=== PATIENT | male | born 1965 | race Caucasian/White ===

== ENCOUNTER 2018-01-16 21:45 | Emergency (ER) | payer MEDICARE, MEDICAID ==
[2018-01-16] MEDS ORDERED: Sodium Chloride 0.9% 1,000 ML IV ONE (22:14)
[2018-01-16] MEDS ORDERED: Sodium Chloride 0.9% 10 ML Syringe FLUSH PRN (22:14)
[2018-01-16] MEDS ORDERED: HYDROmorphone 2 MG/ML SDV IVPUSH ONE ×2 (22:15→22:47)
[2018-01-16] MEDS ORDERED: Ondansetron 4 MG/2 ML SDV IVPUSH ONE (22:15)
--- NOTE | 2018-01-16 22:21 | EDM.PDOC ---
ED HPI GENERAL MEDICAL PROBLEM - General Chief Complaint: Flank Pain Stated Complaint: CHEST PAIN/ LT SIDE PAIN Time Seen by Provider: 01/16/18 22:17 Source of Information: Reports: Patient History Limitations: Reports: No Limitations - History of Present Illness INITIAL COMMENTS - FREE TEXT/NARRATIVE: Developed left flank pain 1 hour ago associated with nausea and left sided chest pain. No prior h/o kidney stones. Prior h/o AMI w/ 2v CABG 2010 in [place]. Gastric bypass 2000 @ [facility]. Onset: Today, Sudden Onset Date: 01/16/18 Duration: Hour(s): (1) Location: Reports: Chest, Abdomen Quality: Reports: Dull Severity: Moderate Associated Symptoms: Reports: No Other Symptoms - Related Data Allergies Allergy/AdvReac Type Severity Reaction Status Date / Time No Known Allergies Allergy Verified 01/16/18 22:47 Past Medical History Cardiovascular History: Reports: CAD, High Cholesterol, Hypertension, NM Endocrine/Metabolic History: Reports: Diabetes, Type II - Past Surgical History Cardiovascular Surgical History: Reports: Coronary Artery Bypass (2010), Coronary Artery Stent GI Surgical History: Reports: Other (See Below) (Gastric bypass [address] Deonte Chauhan @ [facility]) Social & Family History - Tobacco Use Tobacco Use Within Last Twelve Months: No - Alcohol Use Alcohol Use History: Yes Alcohol Use Frequency: Rarely - Recreational Drug Use Recreational Drug Use: No ED ROS GENERAL - Review of Systems Review Of Systems: See Below Constitutional: Reports: No Symptoms HEENT: Reports: No Symptoms Respiratory: Reports: No Symptoms Cardiovascular: Reports: Chest Pain (left sided) Endocrine: Reports: No Symptoms GI/Abdominal: Reports: Nausea, Other (left flank pain). Denies: Vomiting Musculoskeletal: Reports: No Symptoms Skin: Reports: No Symptoms Neurological: Reports: No Symptoms Psychiatric: Reports: No Symptoms Hematologic/Lymphatic: Reports: No Symptoms Immunologic: Reports: No Symptoms ED EXAM, GI/ABD - Physical Exam Exam: See Below Exam Limited By: No Limitations General Appearance: Alert, WD/WN, No Apparent Distress Ears: Normal External Exam Nose: Normal Inspection Throat/Mouth: No Airway Compromise Head: Atraumatic, Normocephalic Neck: Full Range of Motion Respiratory/Chest: No Respiratory Distress, Lungs Clear, Normal Breath Sounds Cardiovascular: Regular Rate, Rhythm, No Edema, No Gallop, No JVD, No Murmur, No Rub GI/Abdominal Exam: Normal Bowel Sounds, Soft, Tender (mild left mid) Back Exam: CVA Tenderness (L) Extremities: Normal Range of Motion Neurological: Alert, Oriented, Normal Cognition, No Motor/Sensory Deficits Psychiatric: Normal Affect, Normal Mood Skin Exam: Warm, Dry, Intact EKG INTERPRETATION EKG Date: 01/16/18 Time: 21:58 Rhythm: NSR Rate (Beats/Min): 77 Comparison: No Change (from 02/03/17) EKG Interpretation Comments: Wide complex QRS, no acute ischemia, no change when compared to 02/03/17 EKG Course - Vital Signs Last Recorded V/S: Last Vital Signs Temp 37.6 C 01/16/18 21:45 Pulse 83 01/16/18 21:45 Resp 18 01/16/18 21:45 BP 176/112 H 01/16/18 21:45 Pulse Ox 98 01/16/18 21:45 - Orders/Labs/Meds Orders: Active Orders 24 hr Category Date Time Status EKG Documentation Completion [RC] ASDIRECTED Care 01/16/18 22:04 Active Abdomen Pelvis wo Cont [CT] Stat Exams 01/16/18 22:16 Taken CXR [Chest 1V Frontal] [CR] Stat Exams 01/16/18 22:03 Taken CULTURE BLOOD [BC] Stat Lab 01/16/18 23:30 Received CULTURE BLOOD [BC] Stat Lab 01/16/18 23:40 Received UA W/MICROSCOPIC [URIN] Stat Lab 01/16/18 23:50 Ordered HYDROmorphone [Dilaudid] Med 01/17/18 00:51 Once 0.5 mg IVPUSH ONETIME ONE Sodium Chloride 0.9% @ 150 MLS/HR (1000ml) Med 01/17/18 01:00 Ordered Sodium Chloride 0.9% [Normal Saline] 1,000 ml IV ASDIRECTED Sodium Chloride 0.9% [Saline Flush] Med 01/16/18 22:14 Active 10 ml FLUSH ASDIRECTED PRN Blood Culture x2 Reflex Set [OM.PC] Urgent Oth 01/16/18 22:52 Ordered Saline Lock Insert [OM.PC] Routine Oth 01/16/18 22:14 Ordered EKG 12 Lead [EK] Stat Ther 01/16/18 22:03 Ordered Medication Orders Sodium Chloride (Saline Flush) 10 ml FLUSH ASDIRECTED PRN PRN Reason: Keep Vein Open Labs: Laboratory Tests 01/16/18 01/16/18 01/16/18 Range/Units 22:05 22:05 22:05 WBC 12.6 H (4.5-12.0) X10-3/uL RBC 5.20 (4.30-5.75) x10(6)uL Hgb 15.1 (11.5-15.5) g/dL Hct 44.7 (30.0-51.3) % MCV 85.8 (80-96) fL MCH 28.9 (27.7-33.6) pg MCHC 33.7 (32.2-35.4) g/dL RDW 14.3 (11.5-15.5) % Plt Count 392 H (125-369) X10(3)uL MPV 8.1 (7.4-10.4) fL Neut % (Auto) 74.7 (46-82) % Lymph % (Auto) 13.2 (13-37) % [place] % (Auto) 8.0 (4-12) % Eos % (Auto) 0 L (1.0-5.0) % Baso % (Auto) 4 H (0-2) % Neut # (Auto) 9.4 H (1.6-8.3) # Lymph # (Auto) 1.7 (0.6-5.0) # [place] # (Auto) 1.0 (0.0-1.3) # Eos # (Auto) 0.0 (0.0-0.8) # Baso # (Auto) 0.5 H (0.0-0.2) # PT 9.0 (8.7-11.1) INR 0.93 (0.89-1.13) Sodium 133 L (135-145) mmol/L Potassium 4.4 (3.5-5.3) mmol/L Chloride 97 L (100-110) mmol/L Carbon Dioxide 22 (21-32) mmol/L BUN 50 H (7-18) mg/dL Creatinine 1.8 H (0.70-1.30) mg/dL Est Cr Clr Drug Dosing TNP Estimated GFR (MDRD) 40 L (>60) BUN/Creatinine Ratio 27.8 H (9-20) Glucose 285 H (80-116) mg/dL Lactic Acid (0.4-2.2) mmol/L Calcium 9.2 (8.6-10.2) mg/dL Total Bilirubin 0.3 (0.1-1.3) mg/dL AST 16 (5-25) IU/L ALT 24 (12-36) U/L Alkaline Phosphatase 90 (56-112) IU/L Troponin I (<0.017-0.056) ng/mL Total Protein 8.3 H (6.0-8.0) g/dL Albumin 3.6 (3.5-5.2) g/dL Globulin 4.7 g/dL Albumin/Globulin Ratio 0.8 Amylase (25-115) U/L Urine Color (YELLOW) Urine Appearance (CLEAR) Urine pH (5.0-6.5) Ur Specific [place] (1.010-1.025) Urine Protein (NEGATIVE) mg/dL Urine Glucose (UA) (NEGATIVE) mg/dL Urine Ketones (NEGATIVE) mg/dL Urine Occult Blood (NEGATIVE) Urine Nitrite (NEGATIVE) Urine Bilirubin (NEGATIVE) Urine Urobilinogen (NEGATIVE) mg/dL Ur Leukocyte Esterase (NEGATIVE) Urine RBC (0) Urine WBC (0) Ur Squamous Epith Cells (NS,R,O) Urine Bacteria (NS) 01/16/18 01/16/18 01/16/18 Range/Units 22:05 22:05 23:30 WBC (4.5-12.0) X10-3/uL RBC (4.30-5.75) x10(6)uL Hgb (11.5-15.5) g/dL Hct (30.0-51.3) % MCV (80-96) fL MCH (27.7-33.6) pg MCHC (32.2-35.4) g/dL RDW (11.5-15.5) % Plt Count (125-369) X10(3)uL MPV (7.4-10.4) fL Neut % (Auto) (46-82) % Lymph % (Auto) (13-37) % [place] % (Auto) (4-12) % Eos % (Auto) (1.0-5.0) % Baso % (Auto) (0-2) % Neut # (Auto) (1.6-8.3) # Lymph # (Auto) (0.6-5.0) # [place] # (Auto) (0.0-1.3) # Eos # (Auto) (0.0-0.8) # Baso # (Auto) (0.0-0.2) # PT (8.7-11.1) INR (0.89-1.13) Sodium (135-145) mmol/L Potassium (3.5-5.3) mmol/L Chloride (100-110) mmol/L Carbon Dioxide (21-32) mmol/L BUN (7-18) mg/dL Creatinine (0.70-1.30) mg/dL Est Cr Clr Drug Dosing Estimated GFR (MDRD) (>60) BUN/Creatinine Ratio (9-20) Glucose (80-116) mg/dL Lactic Acid 1.5 (0.4-2.2) mmol/L Calcium (8.6-10.2) mg/dL Total Bilirubin (0.1-1.3) mg/dL AST (5-25) IU/L ALT (12-36) U/L Alkaline Phosphatase (56-112) IU/L Troponin I < 0.017 L (<0.017-0.056) ng/mL Total Protein (6.0-8.0) g/dL Albumin (3.5-5.2) g/dL Globulin g/dL Albumin/Globulin Ratio Amylase 61 (25-115) U/L Urine Color (YELLOW) Urine Appearance (CLEAR) Urine pH (5.0-6.5) Ur Specific [place] (1.010-1.025) Urine Protein (NEGATIVE) mg/dL Urine Glucose (UA) (NEGATIVE) mg/dL Urine Ketones (NEGATIVE) mg/dL Urine Occult Blood (NEGATIVE) Urine Nitrite (NEGATIVE) Urine Bilirubin (NEGATIVE) Urine Urobilinogen (NEGATIVE) mg/dL Ur Leukocyte Esterase (NEGATIVE) Urine RBC (0) Urine WBC (0) Ur Squamous Epith Cells (NS,R,O) Urine Bacteria (NS) 01/16/18 Range/Units 23:50 WBC (4.5-12.0) X10-3/uL RBC (4.30-5.75) x10(6)uL Hgb (11.5-15.5) g/dL Hct (30.0-51.3) % MCV (80-96) fL MCH (27.7-33.6) pg MCHC (32.2-35.4) g/dL RDW (11.5-15.5) % Plt Count (125-369) X10(3)uL MPV (7.4-10.4) fL Neut % (Auto) (46-82) % Lymph % (Auto) (13-37) % [place] % (Auto) (4-12) % Eos % (Auto) (1.0-5.0) % Baso % (Auto) (0-2) % Neut # (Auto) (1.6-8.3) # Lymph # (Auto) (0.6-5.0) # [place] # (Auto) (0.0-1.3) # Eos # (Auto) (0.0-0.8) # Baso # (Auto) (0.0-0.2) # PT (8.7-11.1) INR (0.89-1.13) Sodium (135-145) mmol/L Potassium (3.5-5.3) mmol/L Chloride (100-110) mmol/L Carbon Dioxide (21-32) mmol/L BUN (7-18) mg/dL Creatinine (0.70-1.30) mg/dL Est Cr Clr Drug Dosing Estimated GFR (MDRD) (>60) BUN/Creatinine Ratio (9-20) Glucose (80-116) mg/dL Lactic Acid (0.4-2.2) mmol/L Calcium (8.6-10.2) mg/dL Total Bilirubin (0.1-1.3) mg/dL AST (5-25) IU/L ALT (12-36) U/L Alkaline Phosphatase (56-112) IU/L Troponin I (<0.017-0.056) ng/mL Total Protein (6.0-8.0) g/dL Albumin (3.5-5.2) g/dL Globulin g/dL Albumin/Globulin Ratio Amylase (25-115) U/L Urine Color Yellow (YELLOW) Urine Appearance Clear (CLEAR) Urine pH 6.0 (5.0-6.5) Ur Specific [place] 1.010 (1.010-1.025) Urine Protein 100 H (NEGATIVE) mg/dL Urine Glucose (UA) >1000 H (NEGATIVE) mg/dL Urine Ketones Negative (NEGATIVE) mg/dL Urine Occult Blood Moderate H (NEGATIVE) Urine Nitrite Negative (NEGATIVE) Urine Bilirubin Negative (NEGATIVE) Urine Urobilinogen Normal (NEGATIVE) mg/dL Ur Leukocyte Esterase Negative (NEGATIVE) Urine RBC 5-10 (0) Urine WBC 0-5 (0) Ur Squamous Epith Cells Occasional (NS,R,O) Urine Bacteria Few H (NS) Meds: Medications Generic Name Dose Route Start Last Admin Trade Name Freq PRN Reason Stop Dose Admin Sodium Chloride 10 ml 01/16/18 22:14 Saline Flush FLUSH ASDIRECTED PRN Keep Vein Open Discontinued Medications Generic Name Dose Route Start Last Admin Trade Name Freq PRN Reason Stop Dose Admin Hydromorphone HCl 1 mg 01/16/18 22:15 01/16/18 22:35 Dilaudid IVPUSH 01/16/18 22:16 1 mg ONETIME ONE Administration Hydromorphone HCl 1 mg 01/16/18 22:47 01/16/18 22:50 Dilaudid IVPUSH 01/16/18 22:48 1 mg ONETIME ONE Administration Sodium Chloride 1,000 mls @ 999 mls/hr 01/16/18 22:14 01/16/18 22:15 Normal Saline IV 01/16/18 23:14 999 mls/hr .BOLUS ONE Administration Ketorolac Tromethamine 15 mg 01/16/18 22:59 01/16/18 23:00 Toradol IVPUSH 01/16/18 23:00 Not Given ONETIME ONE Ketorolac Tromethamine 15 mg 01/16/18 22:59 01/16/18 23:05 Toradol IVPUSH 01/16/18 23:00 15 mg ONETIME ONE Administration Ondansetron HCl 4 mg 01/16/18 22:15 01/16/18 22:24 Zofran IVPUSH 01/16/18 22:16 4 mg ONETIME ONE Administration Pantoprazole Sodium 40 mg 01/17/18 00:13 01/17/18 00:40 Protonix Iv IVPUSH 01/17/18 00:14 40 mg ONETIME ONE Administration - Radiology Interpretation Free Text/Narrative:: CT Abd/Pelvis w/o contrast: No nephrolithiasis or hydronephrosis. Cholelithiasis. Fluid within the excluded portion of the stomach concerning for anastomotic breakdown. Ill-defined fat stranding along the posterior aspect of the stomach (per radiologist this finding most likely indicates an acute process related to the anastomotic breakdown). No extraluminal air. Consider endoscopy CT Results Date: 01/16/18 CT Results Time: 22:40 - Re-Assessments/Exams Free Text/Narrative Re-Assessment/Exam: 01/16/18 22:30 Pain has not improved after Dilaudid 2mg IV but has migrated to suprapubic region. 01/17/18 23:10 Pain has significantly improved after Toradol 15mg IV. 01/17/18 00:[address] Deonte Chauhan who believed the CT findings were consistent with an anastamotic ulcer, he recommended higher level of care transfer due to extensive cardiac history and very high BMI. [facility] declined to accept transfer because it was determined that this bariatric complication was beyond the expertise of the applications specialist surgeon. Dr. Ziegler at [facility] agreed to accept patient for transfer, advised against antibiotics at this time. Departure - Departure Time of Disposition: 01:03 Disposition: DC/Tfer to Acute Hospital 02 Condition: Fair Clinical Impression: Complications of bariatric procedures, Anastomotic ulcer - Discharge Information *PRESCRIPTION DRUG MONITORING PROGRAM REVIEWED*: No *COPY OF PRESCRIPTION DRUG MONITORING REPORT IN PATIENT FAREED: Not Applicable Referrals: Lucas Stoll MD [Primary Care Provider] - Forms: ED Department Discharge Additional Instructions: The patient will be transferred to [facility], Dr. Ziegler accepting. - My Orders Last 24 Hours: My Active Orders 01/16/18 22:03 CXR [Chest 1V Frontal] [CR] Stat EKG 12 Lead [EK] Stat 01/16/18 22:04 EKG Documentation Completion [RC] ASDIRECTED 01/16/18 22:14 Sodium Chloride 0.9% [Saline Flush] 10 ml FLUSH ASDIRECTED PRN Saline Lock Insert [OM.PC] Routine 01/16/18 22:16 Abdomen Pelvis wo Cont [CT] Stat 01/16/18 22:52 Blood Culture x2 Reflex Set [OM.PC] Urgent 01/16/18 23:30 CULTURE BLOOD [BC] Stat 01/16/18 23:40 CULTURE BLOOD [BC] Stat 01/16/18 23:50 UA W/MICROSCOPIC [URIN] Stat 01/17/18 00:51 HYDROmorphone [Dilaudid] 0.5 mg IVPUSH ONETIME ONE 01/17/18 01:00 Sodium Chloride 0.9% @ 150 MLS/HR (1000ml) Sodium Chloride 0.9% [Normal Saline] 1,000 ml IV ASDIRECTED - Assessment/Plan Last 24 Hours: My Active Orders 01/16/18 22:03 CXR [Chest 1V Frontal] [CR] Stat EKG 12 Lead [EK] Stat 01/16/18 22:04 EKG Documentation Completion [RC] ASDIRECTED 01/16/18 22:14 Sodium Chloride 0.9% [Saline Flush] 10 ml FLUSH ASDIRECTED PRN Saline Lock Insert [OM.PC] Routine 01/16/18 22:16 Abdomen Pelvis wo Cont [CT] Stat 01/16/18 22:52 Blood Culture x2 Reflex Set [OM.PC] Urgent 01/16/18 23:30 CULTURE BLOOD [BC] Stat 01/16/18 23:40 CULTURE BLOOD [BC] Stat 01/16/18 23:50 UA W/MICROSCOPIC [URIN] Stat 01/17/18 00:51 HYDROmorphone [Dilaudid] 0.5 mg IVPUSH ONETIME ONE 01/17/18 01:00 Sodium Chloride 0.9% @ 150 MLS/HR (1000ml) Sodium Chloride 0.9% [Normal Saline] 1,000 ml IV ASDIRECTED
[2018-01-16] MEDS ORDERED: Ketorolac 30 MG/ML SDV IVPUSH ONE ×2 (22:59)
[2018-01-17] MEDS ORDERED: Pantoprazole 40 MG Vial IVPUSH ONE (00:13)
[2018-01-17] MEDS ORDERED: HYDROmorphone 2 MG/ML SDV IVPUSH ONE ×2 (00:51→01:40)
[2018-01-17] MEDS ORDERED: Sodium Chloride 0.9% 1,000 ML IV SCH (01:00)
[2018-01-17] MEDS ORDERED: HYDROmorphone 2 MG/ML SDV ONE (01:41)
--- NOTE | 2018-01-19 12:41 | CR ---
INDICATIONS: Chest pain. CHEST, ONE VIEW: Portable AP upright view of the chest, 01/16/2018, was compared 08/13/2010 and 01/17/2008 revealing evidence of previous median sternotomy, not evidence on 2011 examination. The heart appeared enlarged, but is emphasized by the AP positioning and relatively poor inspiration. Upper lung pulmonary vasculature appears prominent raising question of a mild or early CHF. This should be correlated clinically. Interstitial markings are heavy, raising question of interstitial lung edema of mild degree. A definite active infiltrate or effusion was not identified. Overlying EKG leads are noted. Evidence of exogenous obesity is noted. IMPRESSION: I cannot exclude a mild degree of CHF and interstitial lung edema correlate clinically. MTDD
== END 2018-01-17 01:45 ==
LOC: FB.ED 21:45
DX: K28.9 Gastrojejunal ulcer, unspecified as acute or chronic, without hemorrhage or perforation (principal); K95.89 Other complications of other bariatric procedure; E11.9 Type 2 diabetes mellitus without complications; I10 Essential (primary) hypertension; I25.2 Old myocardial infarction
CPT/HCPCS: 36415; 71045; 74176; 80053; 81001; 82150; 83605; 84484; 85025; 85610; 87040; 93005; 96361; 96374; 96375; 96376; 99285; C9113; J1170; J1885; J2405; J7030